=== PATIENT | male | born 1985 | race Caucasian/White ===

== ENCOUNTER 2023-02-14 05:44 | Day surgery (SDC) | payer BC ==
[~2023-02-14 05:44] MED LIST: ACETAMINOPHEN TAB 500 MG TAB PO PRN; HEPARIN SODIUM,PORCINE/PF 5,000 UNIT/0.5 ML SYRINGE SQ PRN; ceFAZolin 3 GM in SODIUM CHLORIDE 0.9% 100 ML IVPB PRN
[2023-02-14] MEDS ORDERED: DEXAMETHASONE SOD PHOSPHATE 4 MG/ML 1 ML VIAL IV ONE (05:59)
[2023-02-14] MEDS ORDERED: ONDANSETRON 4 MG/2 ML VIAL IVP ONE (05:59)
[2023-02-14] MEDS ORDERED: LIDOCAINE 1% (10MG/ML) FOR IV START INTRADERMA PRN (05:59)
[2023-02-14 06:35] VITALS: TEMP 98.3
[2023-02-14] MEDS: LACTATED RINGERS 1,000 ML IV SCH ×2 (06:43→07:23)
[2023-02-14 06:46] LABS: Glucose,Whole Blood 106 mg/dL (70-110)
[2023-02-14] MEDS ORDERED: METOCLOPRAMIDE 5 MG/ML 2 ML VIAL IVP PRN (07:00)
[2023-02-14] MEDS ORDERED: HYDROmorphone 0.5 MG/0.5 ML SYRINGE IVP PRN (07:00)
[2023-02-14] MEDS ORDERED: NEOSTIGMINE 1 MG/ML 10 ML VIAL ONE (07:19)
[2023-02-14] MEDS ORDERED: DEXAMETHASONE SOD PHOSPHATE 4 MG/ML 1 ML VIAL ONE (07:19)
[2023-02-14] MEDS ORDERED: SUCCINYLCHOLINE CHLORIDE 200 MG/10 ML VIAL IV ONE (07:19)
[2023-02-14] MEDS ORDERED: HYDROmorphone (PF) 1 MG/ML ONE (07:19)
[2023-02-14] MEDS ORDERED: LIDOCAINE 2% INJ 20 MG/ML (2 ML VIAL) ONE (07:19)
[2023-02-14] MEDS ORDERED: ROPIVACAINE 5 MG/ML 30 ML VIAL ONE (07:19)
[2023-02-14] MEDS ORDERED: MIDAZOLAM 2 MG/2 ML VIAL ONE (07:19)
[2023-02-14] MEDS ORDERED: KETAMINE 10 MG/ML 20 ML VIAL ONE (07:19)
[2023-02-14] MEDS ORDERED: ROCURONIUM 10 MG/ML (5 ML VIAL) IV ONE (07:19)
[2023-02-14] MEDS ORDERED: fentaNYL (PF) 50 MCG/ML 2 ML AMP ONE (07:19)
[2023-02-14] MEDS ORDERED: PROPOFOL 10 MG/ML 20 ML VIAL IV ONE (07:19)
[2023-02-14] MEDS ORDERED: GLYCOPYRROLATE 0.2 MG/ML 2 ML VIAL ONE (07:19)
[2023-02-14] MEDS ORDERED: BUPIVACAIN-EPI 0.25%-1:200,000 30 ML VIAL SQ ONE ×2 (07:24→08:15)
--- NOTE | 2023-02-14 07:24 | P.GSHP ---
History of Present Illness H&P Date: 02/14/23 Chief Complaint: Incarcerated ventral hernia 37-year-old male here today for elective repair incarcerated ventral hernia. Patient last seen in the office 6 weeks ago. Hernia has been gradually enlarging. Mild pain at times. 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 Past ponv/motion sickness. Smoking Status: Never smoker - Past Family History Father Family Medical History: Hyperlipidemia, Myocardial Infarction ([place]) Additional Family Medical History / Comment(s): father of [place] at the age of 58yrs Mother Additional Family Medical History / Comment(s): smoker Medications and Allergies Home Medications Medication Instructions Recorded Confirmed Type Ascorbic Acid [Vitamin C chew] 500 mg PO QAM 02/11/23 02/14/23 History Atorvastatin Calcium 20 mg PO QAM 02/11/23 02/14/23 History Cholecalciferol (Vitamin D3) 125 mcg PO QAM 02/11/23 02/14/23 History [Vitamin D3 (125 MCG = 5,000 IU)] Escitalopram [Lexapro] 10 mg PO QAM 02/11/23 02/14/23 History Levocetirizine Dihydrochloride 5 mg PO QAM 02/11/23 02/14/23 History [Xyzal] Omeprazole 20 mg PO QAM 02/11/23 02/14/23 History lisinopriL [Zestril] 10 mg PO QAM 02/11/23 02/14/23 History metFORMIN HCL 500 mg PO BID-W/MEALS 02/11/23 02/14/23 History Allergies Allergy/AdvReac Type Severity Reaction Status Date / Time No Known Allergies Allergy Verified 02/14/23 06:25 Surgical - Exam Vital Signs Temp Pulse Resp BP Pulse Ox 98.3 F 65 20 152/80 98 02/14/23 06:33 02/14/23 06:33 02/14/23 06:33 02/14/23 06:33 02/14/23 06:33 Physical exam: General: Well-developed, well-nourished HEENT: Normocephalic, sclerae nonicteric Abdomen: Nontender, nondistended, moderate sized incarcerated ventral hernia, possible few millimeter defect at base of umbilicus without palpable hernia sac Extremities: No edema Neuro: Alert and oriented Assessment and Plan (1) Incarcerated ventral hernia Narrative/Plan: 37-year-old male with incarcerated ventral hernia. We'll proceed with open rep air incarcerated ventral hernia with mesh. We discussed the umbilical findings and will observe for now unless something is identified intraoperatively. Risks of bleeding, infection, recurrence, bladder and bowel injury, numbness, nerve injury were discussed with the patient. The patient understands and wishes to proceed. Current Visit: Yes Status: Acute Code(s): K43.6 - OTHER AND UNSP VENTRAL HERNIA WITH OBSTRUCTION, W/O GANGRENE SNOMED Code(s): 948706173
[2023-02-14] MEDS ORDERED: LACTATED RINGERS 1,000 ML IV ONE (08:24)
[2023-02-14] MEDS ORDERED: ACETAMINOPHEN TAB 325 MG TAB PO SCH (08:45)
[2023-02-14 10:06] VITALS: RESP 20
--- NOTE | 2023-02-14 10:28 | P.OP ---
Date of Procedure: 02/14/23 Procedure(s) Performed: PREOPERATIVE DIAGNOSIS: Incarcerated ventral hernia POSTOPERATIVE DIAGNOSIS: Same PROCEDURE: Open repair incarcerated ventral hernia with mesh SURGEON: Dr. Srivastava ANESTHESIA: General OPERATIVE PROCEDURE DETAILS: Patient placed on the operating table in the supine position. Abdomen was prepped and draped in usual sterile fashion. A vertical incision was then made in the midepigastric region Dissection through the subcutaneous tissues took place using electrocautery. The patient had a large hernia sac. This was carefully dissected to the fascia where a 3.2 x 2.2 cm fascial defect was encountered. No additional fascial defects were seen. The fascia was circumferentially cleared of overlying fat. I was able to reduce the hernia completely into the abdominal space. Preperitoneal space was then carefully dissected using both blunt dissection and cautery. We were able to avoid entrance into the peritoneal cavity. We had adequate space now for a sizable mesh. The 6.4 cm ventral ex mesh was placed in the preperitoneal space and sutured to the fascia using trans-fascial 0 Ethibond sutures. Following that the midline fascia was reapproximated horizontally using interrupted 0 Ethibond mattress sutures. The subcutaneous tissues were closed using 3-0 Vicryl sutures. The skin was closed using a running 4-0 Monocryl suture. Skin glue and sterile dressings were applied. TYPE OF MESH USED: 6.4 cm ventral ex LOCATION OF MESH: Sub-lay FIXATION: Trans-fascial 0 Ethibond sutures PREOPERATIVE DISCUSSION ON SMOKING CESSASTION: Yes PREOPERATIVE DISCUSSION ON MORBID OBESITY: Yes PREOPERATIVE DISCUSSION ON APPROPRIATE USE OF NARCOTIC USE: Yes PREOPERATIVE EDUCATION: Multi Modal, Smoking Cessation and Weight Loss with BMI over 35. DISPOSITION: Stable to recovery room
[2023-02-14 10:37] VITALS: BP 121/71
[2023-02-14 10:54] VITALS: PULSE 88
[2023-02-14] MEDS ORDERED: IBUPROFEN 600 MG TAB PO SCH (11:45)
--- NOTE | 2023-02-16 16:18 | P.ANPRN ---
Procedure Note - Anesthesia - Nerve Block Performed Bilateral Transversus Abdominis Single Time Out Performed: Yes Date of Procedure: 02/14/23 Procedure Start Time: : Procedure Stop Time: :09 Location of Patient: PreOp Indication: Acute Post-Operative Pain, Requested by Surgeon Sedation Type: Sedate with meaningful contact maintained Preparation: Sterile Prep Position: Supine Needle Types: Pajunk Needle Gauge: 21 Ultrasound used to visualize needle placement: Yes Ultrasound used to observe medication spread: Yes Blood Aspirated: No Pain Paresthesia on Injection Noted: No Resistance on Injection: Normal Image Stored and Saved: Yes Events: Uneventful and Well Tolerated (ropi .5% 20cc plus dexamethasone 4mg given bilaterally)
== END 2023-02-14 11:28 | disposition home or self-care (01) ==
LOC: OR 05:44
PROVIDERS: ATTEND Surgery
DX: K43.6 Other and unspecified ventral hernia with obstruction, without gangrene (principal); G89.18 Other acute postprocedural pain; K21.9 Gastro-esophageal reflux disease without esophagitis; J45.909 Unspecified asthma, uncomplicated; E11.9 Type 2 diabetes mellitus without complications; I10 Essential (primary) hypertension; E78.5 Hyperlipidemia, unspecified; Z90.89 Acquired absence of other organs; K91.0 Vomiting following gastrointestinal surgery; Z98.890 Other specified postprocedural states; Z82.49 Family history of ischemic heart disease and other diseases of the circulatory system; Z79.84 Long term (current) use of oral hypoglycemic drugs; Z79.899 Other long term (current) drug therapy
CPT/HCPCS: 64488; 49594; C1781; J2250; J0330; J1100; J2710; J0690; J2405; J3010; J1170 ×2; J2795; J2704; J1644; J2001